=== PATIENT | female | born 1990 | race Two or more races ===

== ENCOUNTER 2024-12-11 05:57 | Day surgery (SDC) | payer OTHER ==
[2024-12-05 11:57] LABS: BASO % 0.7 % (0.1-1.2); EOS # 0.14 (0.04-0.54); EOS % 1.4 % (0.7-7.0); HEMATOCRIT 39.5 % (34.1-44.9); HEMOGLOBIN 12.7 g/dL (11.2-15.7); LYMPH # 1.96 (1.18-3.74); LYMPH % 19.7 % (19.3-53.1); MEAN CORPUSCULAR HEMOGLOBIN 28.8 pg (25.6-32.2); MONO # 0.64 (0.24-0.82); MONO % 6.4 % (4.7-12.5); NEUT % 71.5 % (34.0-71.1); PLATELET COUNT 398 K/uL (163-369); RED BLOOD COUNT 4.41 M/uL (3.93-5.22); RED CELL DISTRIBUTION WIDTH 13.8 % (11.6-14.4)
[2024-12-05 12:11] LABS: URINE APPEARANCE Clear; URINE BILIRRUBIN Negative (NEGATIVE); URINE BLOOD Negative; URINE COLOR Yellow; URINE GLUCOSE Negative (NEGATIVE); URINE KETONE Negative (NEGATIVE); URINE LEUKOCYTE Negative; URINE NITRATE Negative; URINE PROTEIN Negative (NEGATIVE); URINE UROBILINOGEN 0.2 E.U./dl
[2024-12-05 12:17] LABS: URINE BACTERIA 2365.9 uL (0.0-1933); URINE EPITHELIAL CELLS 58.2 uL (0.0-38.8); URINE RBC 11.6 uL (0.0-20.8); URINE WBC 6.9 uL (0.0-23.2)
[2024-12-05 12:30] LABS: URINE CAST 0.29 uL (0.0-1.40)
[2024-12-05 13:04] LABS: INR 0.95; PARTIAL THROMBOPLASTIN TIME 28.3 SECONDS (22.0-34.0); PROTHROMBIN TIME 10.4 SECONDS (9.0-11.5)
[2024-12-05 13:18] LABS: BILIRUBIN TOTAL 0.46 mg/dL (0.3-1.2); CALCIUM 9.2 mg/dL (8.5-10.1); CREATININE SERUM 0.89 mg/dL (0.55-1.02); GFR 71.76; GLOBULINA 3.7 G/DL (2.4-3.5); POTASSIUM 4.71 mEq/L (3.5-5.1); TOTAL PROTEIN 7.7 gm/dL (6.4-8.2); TSH 1.77 uIU/mL (0.358-3.74)
[2024-12-11] MEDS ORDERED: CLINDAMYCIN PHOSPHATE 150 MG/ML (900mg) ONE (08:52)
[2024-12-11] MEDS ORDERED: MONODOX100 MG PO (11:23)
[2024-12-11] MEDS ORDERED: NAPR500T14 PO (11:23)
[2024-12-11] MEDS ORDERED: PROMETHAZINE HCL 50 MG/ML AMPUL IM ONE (11:30)
[2024-12-11] MEDS ORDERED: MORPHINE SULFATE 4 MG/ML VIAL IV PRN (11:30)
== END 2024-12-11 16:15 | disposition home or self-care (01) ==
LOC: CIR.AMB 05:57
PROVIDERS: ATTEND Obstetrics & Gynecology
DX: D25.0 Submucous leiomyoma of uterus (principal); N84.0 Polyp of corpus uteri; N92.0 Excessive and frequent menstruation with regular cycle; Z88.0 Allergy status to penicillin